=== PATIENT | female | born 1965 | race Two or more races ===

== ENCOUNTER 2022-02-04 10:43 | Outpatient (CLI) | payer OTHER | END 2022-02-04 10:44 | disposition home or self-care (01) | LOC: RAD 10:43 | PROVIDERS: ATTEND Orthopaedic Surgery | DX: M25.561 Pain in right knee (principal); M25.562 Pain in left knee; S83.200A Bucket-handle tear of unspecified meniscus, current injury, right knee, initial encounter | CPT/HCPCS: 73721 ==

== ENCOUNTER 2022-12-09 11:15 | Outpatient (CLI) | payer OTHER | END 2022-12-09 11:31 | disposition home or self-care (01) | LOC: RAD 11:15 | DX: M16.0 Bilateral primary osteoarthritis of hip (principal) ==

== ENCOUNTER 2023-02-16 08:59 | Outpatient (CLI) | payer OTHER | END 2023-02-16 09:09 | disposition home or self-care (01) | LOC: RAD 08:59 | DX: M16.0 Bilateral primary osteoarthritis of hip (principal); Z96.642 Presence of left artificial hip joint ==

== ENCOUNTER 2023-06-16 08:07 | Outpatient (CLI) | payer OTHER | END 2023-06-16 08:22 | disposition home or self-care (01) | LOC: MAMO-SONO 08:07 | PROVIDERS: ATTEND General Practice | DX: R10.2 Pelvic and perineal pain (principal); R10.9 Unspecified abdominal pain; Z12.31 Encounter for screening mammogram for malignant neoplasm of breast; N64.4 Mastodynia ==

== ENCOUNTER 2023-06-16 09:17 | Outpatient (CLI) | payer OTHER ==
[2023-06-16 10:51] LABS: HEMOGLOBIN 10.3 g/dL (12.0-15.00); MEAN CELL VOLUME 72.8 fL (80.00-100.00); MEAN CORPUSCULAR HEMOGLOBIN 23.4 pg (27.00-32.0); MEAN CORPUSCULAR HGB CONC 32.2 g/dl (32.0-36.0); PLATELET COUNT 554 K/uL (150-450); RED BLOOD COUNT 4.39 M/uL (4.00-6.00); RED CELL DISTRIBUTION WIDTH 19.6 % (11.5-14.5)
[2023-06-16 10:54] LABS: ERYTHROCYTE SEDIMENTATION RATE 27 mm/hr
[2023-06-16 11:19] LABS: ALBUMIN 3.1 gm/dL (3.4-5.0); BILIRUBIN TOTAL 0.39 mg/dL (0.3-1.2); CALCIUM 9.4 mg/dL (8.5-10.1); CHOL HDL RATIO 3.5 (0-5.0); CREATININE SERUM 0.65 mg/dL (0.55-1.02); GFR 94.63; GLOBULINA 3.7 G/DL (2.4-3.5); POTASSIUM 4.55 mEq/L (3.5-5.1); TOTAL PROTEIN 6.8 gm/dL (6.4-8.2)
== END 2023-06-16 09:18 | disposition home or self-care (01) ==
LOC: LAB 09:17
PROVIDERS: ATTEND Internal Medicine Rheumatology
DX: M05.79 Rheumatoid arthritis with rheumatoid factor of multiple sites without organ or systems involvement (principal); E78.5 Hyperlipidemia, unspecified

== ENCOUNTER 2023-07-04 07:40 | Outpatient (CLI) | payer OTHER | END 2023-07-04 07:52 | disposition home or self-care (01) | LOC: RAD 07:40 | DX: M16.12 Unilateral primary osteoarthritis, left hip (principal) ==

== ENCOUNTER 2023-08-29 07:34 | Outpatient (CLI) | payer OTHER | END 2023-08-29 07:37 | disposition home or self-care (01) | LOC: NUCLEAR 07:34 | PROVIDERS: ATTEND Internal Medicine Cardiovascular Disease | DX: I20.89 Other forms of angina pectoris (principal); R06.00 Dyspnea, unspecified ==

== ENCOUNTER 2024-05-04 10:33 | Emergency (ER) | payer OTHER ==
[~2024-05-04] VITALS: Ht 152.4 cm; Wt 59.0 kg
[2024-05-04] MEDS ORDERED: RINVOQ ER15 MG PO (11:50)
[2024-05-04] MEDS ORDERED: HYDROCODONE/CHLORPHEN P-STIREX 5 ML ML PO STA (13:12)
[2024-05-04 14:17] LABS: HEMATOCRIT 33.3 % (36.0-45.00); HEMOGLOBIN 11.3 g/dL (12.0-15.00); MEAN CELL VOLUME 83.6 fL (80.00-100.00); MEAN CORPUSCULAR HEMOGLOBIN 28.3 pg (27.00-32.0); MEAN CORPUSCULAR HGB CONC 33.8 g/dl (32.0-36.0); PLATELET COUNT 330 K/uL (150-450); RED BLOOD COUNT 3.99 M/uL (4.00-6.00); RED CELL DISTRIBUTION WIDTH 16.9 % (11.5-14.5)
== END 2024-05-04 16:48 | disposition home or self-care (01) ==
LOC: ER 10:35
PROVIDERS: General Practice
DX: R53.81 Other malaise (principal); J40 Bronchitis, not specified as acute or chronic; R05.9 Cough, unspecified; Z20.822 Contact with and (suspected) exposure to COVID-19

== ENCOUNTER 2024-07-12 10:58 | Outpatient (CLI) | payer OTHER ==
[~2024-07-12 10:58] MED LIST: RINVOQ ER15 MG PO
== END 2024-07-12 11:05 | disposition home or self-care (01) ==
LOC: RAD 10:58
DX: M17.0 Bilateral primary osteoarthritis of knee (principal)

== ENCOUNTER 2025-04-22 08:04 | Outpatient (CLI) | payer OTHER | END 2025-04-22 08:12 | disposition home or self-care (01) | LOC: MAMO-SONO 08:04 | PROVIDERS: ATTEND Surgery | DX: N62 Hypertrophy of breast (principal); Z80.3 Family history of malignant neoplasm of breast; Z12.31 Encounter for screening mammogram for malignant neoplasm of breast ==

== ENCOUNTER → 2025-07-17 | Outpatient (CLI) | payer OTHER | END | disposition home or self-care (01) | LOC: RAD 10:58 | PROVIDERS: ATTEND Specialist | DX: M41.34 Thoracogenic scoliosis, thoracic region (principal) ==